=== PATIENT | female | born 1940 | race Asian ===

== ENCOUNTER → 2017-10-13 | Outpatient (CLI) | payer OTHER | END | disposition home or self-care (01) | LOC: SUS 09:45 | PROVIDERS: ATTEND Internal Medicine Hospice and Palliative Medicine | DX: C50.912 Malignant neoplasm of unspecified site of left female breast (principal); Z85.3 Personal history of malignant neoplasm of breast | CPT/HCPCS: 76642 ==

== ENCOUNTER → 2018-11-14 | Outpatient (CLI) | payer OTHER | END | disposition home or self-care (01) | LOC: SMA 09:11 | PROVIDERS: ATTEND Internal Medicine Hospice and Palliative Medicine | DX: R92.8 Other abnormal and inconclusive findings on diagnostic imaging of breast (principal); Z90.12 Acquired absence of left breast and nipple | CPT/HCPCS: 77065 ==

== ENCOUNTER 2020-07-08 10:04 | Outpatient (CLI) | payer OTHER | END 2020-07-08 20:26 | disposition home or self-care (01) | LOC: SMA 10:04 | PROVIDERS: ATTEND Internal Medicine Hospice and Palliative Medicine | DX: Z08 Encounter for follow-up examination after completed treatment for malignant neoplasm (principal); Z85.3 Personal history of malignant neoplasm of breast; Z90.10 Acquired absence of unspecified breast and nipple | CPT/HCPCS: 77065 ==